=== PATIENT | female | born 2000 | race Caucasian/White ===

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

== ENCOUNTER 2021-03-10 12:22 | Emergency (ER) | payer MEDICAID ==
[2021-03-10 12:31] VITALS: BP_SYST 140
[2021-03-10 13:20] LABS: BILIRUBIN,URINE NEGATIVE (NEGATIVE); CLARITY/URINE SL CLOUDY (CLEAR); COLOR,URINE YELLOW (YELLOW); GLUCOSE,URINE NEGATIVE (NEGATIVE); KETONES,URINE TRACE (NEGATIVE); LEUKOCYTE ESTERASE ,URINE 1+ (NEGATIVE); NITRITE, URINE NEGATIVE (NEGATIVE); PROTEIN URINE TRACE (NEGATIVE); UROBILINOGEN,URINE 0.2 (0.2-1.0)
[2021-03-10 13:28] LABS: BLOOD, URINE TRACE (NEGATIVE)
[2021-03-10] MEDS ORDERED: NITR-85 PO (13:58)
[2021-03-10 14:00] VITALS: BP_SYST 140
[2021-03-10 14:01] LABS: BACTERIA,URINE RARE /HPF (None Seen)
[2021-03-10 14:02] LABS: TRICHOMONAS,URINE Few /HPF (None Seen)
== END 2021-03-10 14:00 | disposition home or self-care (01) ==
LOC: SED 12:22
DX: N39.0 Urinary tract infection, site not specified (principal); J45.909 Unspecified asthma, uncomplicated; Z79.899 Other long term (current) drug therapy
CPT/HCPCS: 36415; 81000; 81025; 86403; 87081; 87086; 99283; U0003

== ENCOUNTER 2023-07-17 22:14 | Emergency (ER) | payer MEDICAID ==
[~2023-07-17] VITALS: Ht 160 cm; Wt 85.7 kg
[~2023-07-17 22:14] MED LIST: NITR-85 PO
[2023-07-17 22:50] VITALS: BP_SYST 133; PULSE 103; RESP 18; TEMP 97.7; O2SAT 98
[2023-07-17 23:44] LABS: CLARITY/URINE HAZY (CLEAR); COLOR,URINE Y (YELLOW)
[2023-07-17 23:45] LABS: BILIRUBIN,URINE NEGATIVE (NEGATIVE); BLOOD, URINE TRACE (NEGATIVE); GLUCOSE,URINE NEGATIVE (NEGATIVE); KETONES,URINE NEGATIVE (NEGATIVE); PROTEIN URINE TRACE (NEGATIVE)
[2023-07-17 23:46] LABS: LEUKOCYTE ESTERASE ,URINE TRACE (NEGATIVE); NITRITE, URINE NEGATIVE (NEGATIVE); UROBILINOGEN,URINE 0.2 (0.2-1.0)
[2023-07-17 23:47] LABS: BACTERIA,URINE RARE /HPF (None Seen); RBC,URINE 0-3 /HPF (0-3)
[2023-07-17] MEDS ORDERED: NITR-85 PO (23:51)
[2023-07-17] MEDS ORDERED: PHEN-801 PO (23:51)
[2023-07-17 23:59] VITALS: BP_SYST 118; PULSE 82; RESP 20; TEMP 97.5; O2SAT 99
== END 2023-07-17 23:50 | disposition home or self-care (01) ==
LOC: SED 22:14
DX: N39.0 Urinary tract infection, site not specified (principal); R10.30 Lower abdominal pain, unspecified; J45.909 Unspecified asthma, uncomplicated; Z88.0 Allergy status to penicillin; Z79.899 Other long term (current) drug therapy
CPT/HCPCS: 81000; 87086; 99283

== ENCOUNTER 2023-08-21 03:12 | Emergency (ER) | payer MEDICAID ==
[~2023-08-21] VITALS: Ht 160 cm; Wt 86.6 kg
[~2023-08-21 03:12] MED LIST changes: +PHEN-801 PO
[2023-08-21 03:19] VITALS: BP_SYST 139; PULSE 110; RESP 16; TEMP 97.8; O2SAT 99
[2023-08-21 03:35] VITALS: TEMP 97.9
[2023-08-21] MEDS ORDERED: KETOROLAC TROMETHAMINE 60 MG/2 ML VIAL IM ONE (03:45)
[2023-08-21] MEDS ORDERED: IBUP-1971 PO (04:00)
[2023-08-21 04:34] VITALS: BP_SYST 109; PULSE 98; RESP 19; O2SAT 98
== END 2023-08-21 04:24 | disposition home or self-care (01) ==
LOC: SED 03:12
DX: M79.18 Myalgia, other site (principal); M79.622 Pain in left upper arm; R68.84 Jaw pain; J45.909 Unspecified asthma, uncomplicated; Z88.0 Allergy status to penicillin; Z79.899 Other long term (current) drug therapy
CPT/HCPCS: 99283; 96372; J1885

== ENCOUNTER 2023-09-11 15:13 | Emergency (ER) | payer MEDICAID ==
[~2023-09-11] VITALS: Ht 160 cm; Wt 86.2 kg
[~2023-09-11 15:13] MED LIST changes: +IBUP-1971 PO
[2023-09-11 15:19] VITALS: BP_SYST 120; PULSE 147; RESP 18; TEMP 98.3; O2SAT 98
[2023-09-11] MEDS ORDERED: KETOROLAC TROMETHAMINE 60 MG/2 ML VIAL IM ONE (15:45)
[2023-09-11] MEDS ORDERED: ONDANSETRON 4 MG ODT TAB PO ONE (15:45)
[2023-09-11] MEDS ORDERED: ACETAMINOPHEN 500 MG TABLET PO ONE (15:45)
[2023-09-11 15:58] LABS: INFLUENZA TYPE A Negative (NEGATIVE); INFLUENZA TYPE B NEGATIVE (NEGATIVE)
[2023-09-11 16:22] LABS: BLOOD, URINE 1+ (NEGATIVE); CLARITY/URINE CLEAR (CLEAR); GLUCOSE,URINE NEGATIVE (NEGATIVE); KETONES,URINE 3+ (NEGATIVE); LEUKOCYTE ESTERASE ,URINE TRACE (NEGATIVE); NITRITE, URINE NEGATIVE (NEGATIVE); PROTEIN URINE TRACE (NEGATIVE)
[2023-09-11 16:30] LABS: BILIRUBIN,URINE 1+ (NEGATIVE); COLOR,URINE AMBER (YELLOW)
[2023-09-11] MEDS ORDERED: ERYTHROMYCIN BASE 500 MG TABLET PO ONE (16:30)
[2023-09-11 16:32] LABS: BACTERIA,URINE FEW /HPF (None Seen); MUCUS,URINE 1+ /LPF (None Seen)
[2023-09-11] MEDS ORDERED: ERYT-122 PO (16:44)
[2023-09-11] MEDS ORDERED: IBUP-1971 PO (16:44)
[2023-09-11] MEDS ORDERED: ONDA-8 TL (16:44)
[2023-09-11 17:05] VITALS: BP_SYST 143; PULSE 89; RESP 16; TEMP 97.3; O2SAT 98
== END 2023-09-11 17:05 | disposition home or self-care (01) ==
LOC: SED 15:13
DX: J03.90 Acute tonsillitis, unspecified (principal); R50.9 Fever, unspecified; M79.10 Myalgia, unspecified site; R51.9 Headache, unspecified; J45.909 Unspecified asthma, uncomplicated; Z88.0 Allergy status to penicillin; Z79.899 Other long term (current) drug therapy; Z20.822 Contact with and (suspected) exposure to COVID-19
CPT/HCPCS: 99284; 87426; 81001; 36415; 81025; 96372; 87804 ×2; 81000; 81015; Q0162; J1885